=== PATIENT | female | born 1990 | race Caucasian/White ===

== ENCOUNTER → 2020-02-11 | Outpatient (CLI) | payer OTHER ==
[~2020-02-11] MED LIST: GADOTERATE 5 MMOL/10ML VIAL. INT ART ONE; IOHEXOL 300 MG/ML 50 ML VIAL. IART ONE; LIDOCAINE 1% Multi-Dose 20 ML VIAL. ID ONE
--- NOTE | 2020-02-11 16:10 | KCIC ---
FLUOROSCOPICALLY GUIDED RIGHT HIP ARTHROGRAM 1. INDICATION: The patient is a 29 years old Female who presented with right hip pain concerning for labral tear. 2. CONSENT: The risks, benefits, treatment options, potential complications and personnel to be involved were discussed (including the risks of radiation exposure, instruments to be used, contrast and anesthesia administration) with the patient. All questions were answered and consent was obtained. The patient indicated willingness to proceed. 3. GENERAL: a) Medication Reconciliation: The patient's medications and allergies were reviewed in the electronic medical record and reconciled to the proposed procedure/treatment. b) Positioning: The patient was placed Supine on the fluoroscopy table. c) The head was then sterilely prepped and draped. d) Time Out: A time out was performed immediately prior to procedure start with the nursing, anesthesia and interventional team, correctly identifying the patient name, date of , procedure, anatomy (including marking of site and side), patient position, procedure consent form, relevant diagnostic and radiology test results, antibiotic administration, safety precautions, and procedure-specific equipment needs. Procedure Start Time / Timeout Time: 15:45 e) Anesthesia Type: Local anesthesia: 2 mL 1% Lidocaine 4. PROCEDURE: a) Procedure Details: A 20g spinal needle was inserted into the hip joint. 1 mL Omnipaque 300 was injected to confirm intra-articular placement of needle. Contrast was observed to flow into the intra-articular space of the joint without significant resistance. 10 mL of injectate was administered into the joint . The needle was removed. Images were stored to the permanent digital archive documenting needle position. b) Injectate Contents: 0.2 mL Clariscan 20 mL Normal Saline c) Estimated Blood Loss: 0 mL RADIATION DOSE: Fluoroscopic Radiation Summary: Fluoro time: 0:06 min:sec POST PROCEDURE: a) Hemostasis: Hemostasis was achieved using light manual compression. b) Procedure End Time: 15:55 c) Conclusion: The patient was discharged from the radiology department in stable condition. COMPLICATIONS: a) Significant Patient Complication: None If other, explain: b) Complications during the procedure: None If other, explain: 5. RESULTS: Contrast was injected into the joint. 6. IMPRESSION: SUCCESSFUL FLUOROSCOPICALLY GUIDED ARTHROGRAM OF THE RIGHT HIP DESCRIBED ABOVE. Electronically signed by: Nick Paredes DO (02/11/2020 4:07 PM) [id number]
--- NOTE | 2020-02-11 17:00 | KCIC ---
EXAMINATION: MR ARTHROGRAM RIGHT HIP CLINICAL HISTORY: Right hip pain concerning for labral tear TECHNIQUE: Routine hip MRI arthrogram protocol. Procedural portion of the arthrogram reported separately. COMPARISON: Right hip radiographs 01/18/2020 FINDINGS: Right Hip: No labral tear. No articular cartilage defect. No fractures. No avascular necrosis. Tendons: Within normal limits including the iliopsoas, hamstring, gluteal and rectus femoris tendons. Muscles: Within normal limits. No muscle atrophy. Bones/Marrow: No acute fracture or suspicious marrow replacing lesion. Other: IUD in place. IMPRESSION: Unremarkable exam right hip. No discrete acetabular labrum tear. Electronically signed by: Nick Paredes DO (02/11/2020 4:57 PM) [id number]
== END ==
LOC: KCIC 15:11
PROVIDERS: ATTEND Physician Assistant
DX: S73.101A Unspecified sprain of right hip, initial encounter (principal); X58.XXXA Exposure to other specified factors, initial encounter; Y93.89 Activity, other specified; Y92.89 Other specified places as the place of occurrence of the external cause; Y99.8 Other external cause status
CPT/HCPCS: 27093; 73722; 77002; A9575; J3490; Q9967; 73525